=== PATIENT | male | born 1980 | race Two or more races ===

== ENCOUNTER 2020-07-17 08:53 | Emergency (ER) | payer OTHER ==
[~2020-07-17] VITALS: Ht 205.7 cm; Wt 141.5 kg
[2020-07-17] MEDS ORDERED: KETOROLAC 30 MG/1 ML IM ONE (09:30)
[2020-07-17] MEDS ORDERED: HYDROcodone/APAP 5/325 TABLET PO ONE (09:30)
[2020-07-17] MEDS ORDERED: DIAZEPAM 5 MG TABLET PO ONE (09:30)
[2020-07-17] MEDS ORDERED: KETOROLAC 30 MG/1 ML ONE (09:36)
[2020-07-17] MEDS ORDERED: DIAZEPAM 5 MG TABLET ONE (09:36)
[2020-07-17] MEDS ORDERED: HYDROcodone/APAP 5/325 TABLET ONE ×2 (09:37→09:44)
[2020-07-17 09:57] VITALS: BP 140/77
--- NOTE | 2020-07-17 09:59 | NUR ---
PT SITTING UPRIGHT ON GURNEY ON CELL PHONE. PT STATES "I FEEL SO MUCH BETTER, THAT MEDICATION IS STARTING TO KICK IN". PT DENIES ANY ADDITIONAL NEEDS AT THIS TIME. CALL LIGHT WITHIN REACH.
--- NOTE | 2020-07-17 10:35 | NUR ---
Patient given discharge instructions and they have confirmed that they understand the instructions. Patient ambulatory with steady gait.
== END 2020-07-17 10:41 | disposition home or self-care (01) ==
LOC: ED 09:13
DX: S39.012A Strain of muscle, fascia and tendon of lower back, initial encounter (principal); I10 Essential (primary) hypertension; X58.XXXA Exposure to other specified factors, initial encounter; Y93.89 Activity, other specified; Y92.89 Other specified places as the place of occurrence of the external cause; Y99.8 Other external cause status
CPT/HCPCS: 96372; 99283; J1885